=== PATIENT | female | born 1965 | race Caucasian/White ===

== ENCOUNTER 2022-06-21 09:12 | Emergency (ER) | payer OTHER ==
[~2022-06-21 09:12] MED LIST: ZOFRAN8 MG PO
[2022-06-21 13:23] LABS: BASOPHIL 0.8 % (0-2); EOSINOPHIL 8.7 % (0-5); HCT 41.8 % (37.0-47.0); LYMPHOCYTE 31.6 % (15-48); MCH 28.3 pg (25.0-31.0); MCHC 31.1 g/dL (32.0-36.0); MCV 90.9 fL (78.0-100.0); MONOCYTE 7.8 % (0-12); MPV 11.4 fL (6.0-9.5); NEUTROPHIL 50.8 % (41-80); NRBC 0; PLT 364 K/uL (150-400); RDW 13.3 % (11.5-14.0); WBC 9.8 K/uL (4.0-10.5)
[2022-06-21 13:31] LABS: BUN/CREAT RATIO (CALC) 23.9 RATIO; CREATININE 0.92 mg/dL (0.51-0.95); POTASSIUM 4.3 mmol/L (3.5-5.1)
[2022-06-21] MEDS ORDERED: MEDROL 4MG DOSEP4 MG PO (15:21)
[2022-06-21] MEDS ORDERED: KEFLEX250 MG PO (15:21)
== END 2022-06-21 16:28 | disposition home or self-care (01) ==
LOC: FER 09:12
PROVIDERS: Emergency Medicine
DX: L03.211 Cellulitis of face (principal); E11.9 Type 2 diabetes mellitus without complications; Z79.4 Long term (current) use of insulin; Z87.891 Personal history of nicotine dependence
CPT/HCPCS: 36415; 80048; 83605; 85025; 85730; 87040; J0696; J1100; J1200; J2930